=== PATIENT | male | born 1945 | race African-American/Black ===

== ENCOUNTER 2019-03-12 12:06 | Emergency (ER) | payer MEDICARE, OTHER ==
[2019-03-12 13:03] LABS: ADD MAN DIFF? NO
[2019-03-12 13:09] LABS: WHITE BLOOD COUNT 5.1 10^3/ul (4.8-10.8)
[2019-03-12 13:09] LABS: ABNORMAL IP MESSAGE 1; BASOPHILS % 0.4 % (0.0-2.0); EOSINOPHILS % 0.4 % (0.0-7.0); HEMATOCRIT 45.3 % (42.0-52.0); LYMPHOCYTES # 0.2 10^3/ul (0.8-2.9); LYMPHOCYTES % 4.3 % (15.0-51.0); MEAN CORPUSCULAR HEMOGLOBIN 25.9 pg (29.0-33.0); MEAN CORPUSCULAR HGB CONC 30.9 g/dl (32.0-37.0); MEAN CORPUSCULAR VOLUME 83.9 fl (82.0-101.0); MEAN PLATELET VOLUME 10.3 fl (7.4-10.4); MONOCYTE # 0.7 10^3/ul (0.3-0.9); MONOCYTES % 13.9 % (0.0-11.0); NEUTROPHIL # 4.1 10^3/ul (1.6-7.5); NEUTROPHILS % 80.8 % (39.0-77.0); PLATELET COUNT 219 10^3/UL (140-415); POSITIVE DIFF @See below
[2019-03-12] MEDS: SOD CHLORIDE 0.9% 500 ML IV (13:10)
[2019-03-12 13:29] LABS: ANION GAP 8 (5-13); BLOOD UREA NITROGEN 14 mg/dl (7-20); CARBON DIOXIDE 30 mmol/L (21-31); CHLORIDE 101 mmol/L (97-110); CREATININE 1.36 mg/dl (0.61-1.24); GLUCOSE 257 mg/dl (70-220); POTASSIUM 4.9 mmol/L (3.5-5.1); SODIUM 139 mmol/L (135-144); URIC ACID 9.6 mg/dl (3.1-7.9)
[2019-03-12] MEDS: morphine 4 MG/ML VIAL IV (13:30)
[2019-03-12] MEDS: ONDANSETRON 4 MG INJ IV (13:30)
[2019-03-12] MEDS: INDOMETHACIN 50 MG PO (13:51)
[2019-03-12] MEDS: COLCHICINE 0.6 MG TAB PO (13:51)
== END 2019-03-12 16:19 | disposition home or self-care (01) ==
LOC: E/R 12:06
DX: M10.072 Idiopathic gout, left ankle and foot (principal); J44.9 Chronic obstructive pulmonary disease, unspecified; I11.0 Hypertensive heart disease with heart failure; I50.9 Heart failure, unspecified; E11.9 Type 2 diabetes mellitus without complications; F17.210 Nicotine dependence, cigarettes, uncomplicated; Z79.82 Long term (current) use of aspirin; Z79.84 Long term (current) use of oral hypoglycemic drugs
CPT/HCPCS: 36415; 73630-LT; 80048; 84560; 85025; 96361; 96374; 96375; 99284-25